=== PATIENT | male | born 1940 | race African-American/Black ===

== ENCOUNTER → 2025-09-14 08:08 | Outpatient (REF) | payer MEDICARE, SELFPAY | LOC: HWRCS 08:08 | PROVIDERS: ATTENDING PHYSICIAN Internal Medicine Cardiovascular Disease; FAMILY PHYSICIAN Family Medicine | DX: I10 Essential (primary) hypertension (principal); I48.0 Paroxysmal atrial fibrillation | CPT/HCPCS: 93306 ==